=== PATIENT | male | born 1965 | race Caucasian/White ===

== ENCOUNTER 2018-02-04 10:24 | Emergency (ER) | payer OTHER ==
[~2018-02-04] VITALS: Ht 182.9 cm; Wt 94.3 kg
[2018-02-04 10:40] VITALS: BP 155/91
== END 2018-02-04 13:31 | disposition home or self-care (01) ==
LOC: ER 10:24
DX: S30.1XXA Contusion of abdominal wall, initial encounter (principal); I10 Essential (primary) hypertension; Z88.0 Allergy status to penicillin; X58.XXXA Exposure to other specified factors, initial encounter; Y93.89 Activity, other specified; Y92.89 Other specified places as the place of occurrence of the external cause; Y99.8 Other external cause status
CPT/HCPCS: 76870

== ENCOUNTER → 2019-08-18 | Emergency (ER) | payer OTHER ==
[~2019-08-18] VITALS: Ht 182.9 cm; Wt 93.4 kg
[~2019-08-18] MED LIST: LISINOPRIL 20 MG TAB PO ONE; PANTOPRAZOLE 40 MG TAB PO ONE
[2019-08-18 11:26] LABS: Basophils # (auto) 0 10 ^3/uL (0-0.2); Basophils % (auto) 0.8 % (0.0-2.0); Eosinophils # (auto) 0.1 10 ^3/uL (0-0.8); Eosinophils % (auto) 1.3 % (0.0-7.0); Hematocrit 44.7 % (41.0-53.0); Hemoglobin 15.2 g/dL (13.5-17.5); Lymphocytes # (auto) 1.3 10 ^3/uL (0.4-5.4); Lymphocytes % (auto) 21.9 % (10.0-50.0); Mean Corpuscular Hemoglobin 30.9 pg (28.0-32.0); Mean Corpuscular Volume 90.8 fL (80.0-100.0); Monocytes # (auto) 0.5 10 ^3/uL (0-1.3); Monocytes % (auto) 8.4 % (0.0-12.0); Neutrophils # (auto) 3.9 10 ^3/uL (1.6-8.6); Neutrophils % (auto) 67.6 % (37.0-80.0); Platelet Count (auto) 196 10^3/uL (140-450); Red Blood Cells 4.92 10^6/uL (4.5-5.90); Red Cell Distribution Width 13.7 % (11.8-14.3); White Blood Cell 5.7 10^3/uL (4.4-10.8)
[2019-08-18 11:46] LABS: Albumin 3.7 g/dL (3.4-5.0); Anion Gap 4 (5-15); Calcium 8.2 mg/dL (8.5-10.1); Carbon Dioxide 28 mmol/L (21-32); Chloride 111 mmol/L (98-107); Glucose 102 mg/dL (74-106); Magnesium 2.4 mg/dL (1.6-2.6); Potassium 3.6 mmol/L (3.5-5.1); Sodium 143 mmol/L (136-145)
[2019-08-18 11:50] LABS: Alanine Aminotransferase 31 U/L (16-61); Aspartate Aminotransferase 11 U/L (15-37); Bilirubin, Total 1.2 mg/dL (0.2-1.0); Blood Urea Nitrogen 25 mg/dL (7-18); GFR African American 100 mL/min; GFR Non-African American 82 mL/min; Total Protein 6.5 g/dL (6.4-8.2)
[2019-08-18 11:58] LABS: Alkaline Phosphatase 49 U/L (45-117)
[2019-08-18 13:06] LABS: INR 0.97 (0.9-1.15); Partial Thromboplastin Time 26.6 sec (23.64-32.05)
[2019-08-18 13:51] LABS: Urine Bacteria NONE SEEN /hpf (None Seen); Urine Blood Negative /uL (Negative); Urine Mucus FEW (None Seen); Urine Specific Gravity 1.027 (1.001-1.035); Urine WBC 1 /hpf (0 - 3)
[2019-08-18 16:58] VITALS: BP 159/87
== END | disposition short-term general hospital (02) ==
LOC: EDUNIT# 10:25 → ER 10:36 → EDBD 10:36
DX: R07.89 Other chest pain (principal); R00.1 Bradycardia, unspecified; I20.0 Unstable angina; K29.70 Gastritis, unspecified, without bleeding; I10 Essential (primary) hypertension; Z88.0 Allergy status to penicillin
CPT/HCPCS: 36415; 71045; 80053; 81001; 83735; 83880; 84443; 84484; 85025; 85379; 85610; 85730; 93005; 99291

== ENCOUNTER 2021-03-16 10:31 | Emergency (ER) | payer OTHER ==
[~2021-03-16] VITALS: Ht 182.9 cm; Wt 95.3 kg
[2021-03-16] MEDS ORDERED: cloNIDine HCL 0.1 MG TAB PO ONE (11:00)
[2021-03-16] MEDS ORDERED: METH4PAK PO (11:29)
[2021-03-16] MEDS ORDERED: AZIT1POW PO (11:29)
[2021-03-16] MEDS ORDERED: ONDA-144 PO (11:29)
[2021-03-16] MEDS ORDERED: ZINC220C8 PO (11:29)
[2021-03-16 12:47] VITALS: BP 208/121
== END 2021-03-16 13:11 | disposition home or self-care (01) ==
LOC: ER 10:31
DX: U07.1 COVID-19 (principal); I10 Essential (primary) hypertension; Z88.0 Allergy status to penicillin
CPT/HCPCS: 71046

== ENCOUNTER 2022-10-07 09:40 | Inpatient (IN) | payer OTHER ==
[~2022-10-07] VITALS: Ht 182.9 cm; Wt 98.7 kg
[~2022-10-07 09:40] MED LIST changes: +AZIT1POW PO; -LISINOPRIL 20 MG TAB PO ONE; +METH4PAK PO; +ONDA-144 PO; -PANTOPRAZOLE 40 MG TAB PO ONE; +ZINC220C8 PO
[2022-10-07] MEDS ORDERED: SODIUM CHLORIDE 0.9% 1,000 ML IV ONE (09:45)
[2022-10-07 10:13] LABS: Basophils # (auto) 0.1 10 ^3/uL (0-0.2); Basophils % (auto) 0.8 % (0.0-2.0); Eosinophils # (auto) 0.2 10 ^3/uL (0-0.8); Eosinophils % (auto) 3.2 % (0.0-7.0); Hematocrit 41.4 % (41.0-53.0); Hemoglobin 14.8 g/dL (13.5-17.5); Lymphocytes # (auto) 1.8 10 ^3/uL (0.4-5.4); Lymphocytes % (auto) 24.8 % (10.0-50.0); Mean Corpuscular Hemoglobin 30.6 pg (28.0-32.0); Mean Corpuscular Hgb Conc. 35.7 g/dL (32.0-36.0); Mean Corpuscular Volume 85.7 fL (80.0-100.0); Monocytes # (auto) 0.8 10 ^3/uL (0-1.3); Neutrophils # (auto) 4.4 10 ^3/uL (1.6-8.6); Neutrophils % (auto) 60.2 % (37.0-80.0); Red Blood Cells 4.83 10^6/uL (4.5-5.90); Red Cell Distribution Width 14.1 % (11.8-14.3); White Blood Cell 7.3 10^3/uL (4.4-10.8)
[2022-10-07 10:16] LABS: INR 1.02 (0.9-1.15); Partial Thromboplastin Time 28.2 SEC (24.5-34.5); Prothrombin Time 10.7 sec (9.3-11.8)
[2022-10-07 10:34] LABS: Magnesium 2.8 mg/dL (1.6-2.6)
[2022-10-07 10:39] LABS: BUN/Creatinine Ratio 25.7 (10.0-20.0); Bilirubin, Total 1.3 mg/dL (0.2-1.0); Total Protein 6.7 g/dL (6.4-8.2)
[2022-10-07 10:48] LABS: Potassium 2.9 mmol/L (3.5-5.1)
[2022-10-07] MEDS ORDERED: POTASSIUM EFFERVESENT TAB 25 MEQ PO ONE (11:00)
[2022-10-07 11:04] LABS: Urine Bacteria NONE SEEN /hpf (None Seen); Urine Blood TRACE /uL (Negative); Urine Clarity Clear (Clear); Urine Color Yellow (Yellow); Urine Protein, UAD Negative (Negative); Urine Specific Gravity 1.021 (1.001-1.035); Urine Urobilinogen Normal (Negative); Urine WBC <1 /hpf (0 - 3); Urine pH 5.5 (5.0-8.0)
[2022-10-07] MEDS ORDERED: NITROGLYCERIN 0.4 MG SL TAB SL ONE (12:45)
[2022-10-07] MEDS ORDERED: ASPirin 325 MG TAB PO ONE (12:45)
[2022-10-07 14:00] VITALS: PULSE 60; RESP 11; O2SAT 97
[2022-10-07] MEDS ORDERED: ONDANSETRON HCL 4 MG/2 ML VIAL IV PRN (14:00)
[2022-10-07] MEDS ORDERED: MORPHINE SULFATE INJ 2 MG/ml SYRG IV PRN (14:00)
[2022-10-07] MEDS ORDERED: NITROGLYCERIN 0.4 MG SL TAB SL PRN (14:00)
[2022-10-07] MEDS ORDERED: HYDROmorphone HCL 2 MG/ML VL/or syr IV PRN (14:00)
[2022-10-07] MEDS ORDERED: HYDROcodone-ACET 5/325MG TAB PO PRN (14:00)
[2022-10-07] MEDS ORDERED: DOCUSATE SOD 100 MG CAP PO PRN (14:00)
[2022-10-07] MEDS: SODIUM CHLOR 0.9% PF (SALINE LOCK) 10ML VIAL/SYR IV SCH ×2 (14:30→22:00)
[2022-10-07 16:10] LABS: BUN/Creatinine Ratio 25.8 (10.0-20.0); Calcium 9.1 mg/dL (8.5-10.1); Potassium 3.3 mmol/L (3.5-5.1)
[2022-10-07 19:35] VITALS: PULSE 62; RESP 13; O2SAT 95
[2022-10-07 23:15] VITALS: BP 144/90; PULSE 60; RESP 17; TEMP 98; O2SAT 97
[2022-10-07] MEDS ORDERED: IBUP-1455 PO (23:42)
[2022-10-07] MEDS ORDERED: CYCL-614 PO (23:42)
[2022-10-07] MEDS ORDERED: LISI20TA56 PO (23:42)
[2022-10-07] MEDS ORDERED: ASPI325T4 PO (23:44)
[2022-10-08] VITALS (7 sets, daily range): BP systolic 109–131; BP diastolic 68–79; PULSE 58–79; RESP 16–19; TEMP 98–99.3; O2SAT 89–98
[2022-10-08] MEDS: SODIUM CHLOR 0.9% PF (SALINE LOCK) 10ML VIAL/SYR IV SCH ×3 (06:46→21:10)
[2022-10-08] MEDS: ENOXAPARIN SOD 40 MG/0.4 ML SYRINGE SC SCH (10:21)
[2022-10-08 11:16] LABS: Magnesium 2.6 mg/dL (1.6-2.6)
[2022-10-08] MEDS: ACETAMINOPHEN 325 MG TAB PO PRN (11:43)
[2022-10-08] MEDS ORDERED: POTASSIUM CHL 20 Meq TABLET PO ONE (13:00)
[2022-10-08] MEDS ORDERED: TAMSULOSIN HYDROCHLORIDE 0.4 MG CAP PO ONE (13:00)
[2022-10-08] MEDS ORDERED: ASPirin 81 mg TAB PO ONE (14:15)
[2022-10-08] MEDS: ATORVASTATIN 20 MG TAB PO SCH (21:09)
[2022-10-09] VITALS (8 sets, daily range): BP systolic 118–140; BP diastolic 73–90; PULSE 53–74; RESP 16–19; TEMP 97.9–98.7; O2SAT 94–97
[2022-10-09] MEDS: SODIUM CHLOR 0.9% PF (SALINE LOCK) 10ML VIAL/SYR IV SCH ×3 (05:28→21:09)
[2022-10-09 08:04] LABS: BUN/Creatinine Ratio 24.2 (10.0-20.0); Calcium 8.7 mg/dL (8.5-10.1); Magnesium 2.7 mg/dL (1.6-2.6); Potassium 3.6 mmol/L (3.5-5.1)
[2022-10-09] MEDS: ASPirin 81 mg TAB PO SCH (09:50)
[2022-10-09] MEDS: LISINOPRIL 20 MG TAB PO SCH (09:50)
[2022-10-09] MEDS: ENOXAPARIN SOD 40 MG/0.4 ML SYRINGE SC SCH ×2 (09:52→09:54)
[2022-10-09] MEDS: ACETAMINOPHEN 325 MG TAB PO PRN ×2 (12:02→20:48)
[2022-10-09] MEDS ORDERED: TAMSULOSIN HYDROCHLORIDE 0.4 MG CAP PO SCH (18:00)
[2022-10-09] MEDS: ATORVASTATIN 20 MG TAB PO SCH (21:09)
[2022-10-10 05:00] VITALS: BP 115/73; PULSE 65; RESP 20; TEMP 98.4; O2SAT 98
[2022-10-10] MEDS: SODIUM CHLOR 0.9% PF (SALINE LOCK) 10ML VIAL/SYR IV SCH ×2 (05:10→14:00)
[2022-10-10 07:45] VITALS: O2SAT 96
[2022-10-10] MEDS ORDERED: REGADENOSON 0.4 MG/5 ML SYRG IV ONE ×2 (07:45→08:43)
[2022-10-10 09:09] VITALS: BP 138/85; PULSE 62; RESP 18; TEMP 98.2; O2SAT 98
[2022-10-10] MEDS: ENOXAPARIN SOD 40 MG/0.4 ML SYRINGE SC SCH (09:36)
[2022-10-10] MEDS: LISINOPRIL 20 MG TAB PO SCH ×2 (09:37→09:54)
[2022-10-10] MEDS: ASPirin 81 mg TAB PO SCH ×2 (09:37→09:55)
[2022-10-10] MEDS: ACETAMINOPHEN 325 MG TAB PO PRN (09:54)
[2022-10-10 12:57] VITALS: BP 119/84; PULSE 78; RESP 16; TEMP 98.7; O2SAT 95
== END 2022-10-10 15:45 | disposition home or self-care (01) | DRG 311 ==
LOC: ER 09:40 → TELE 13:50 → TELE-WESTW 20:59
PROVIDERS: ADMIT Internal Medicine; ATTEND Internal Medicine
DX: I20.8 Other forms of angina pectoris (principal); N17.9 Acute kidney failure, unspecified; E87.6 Hypokalemia; N40.0 Benign prostatic hyperplasia without lower urinary tract symptoms; R73.03 Prediabetes; I10 Essential (primary) hypertension; E78.5 Hyperlipidemia, unspecified; E66.9 Obesity, unspecified; Z88.0 Allergy status to penicillin; Z72.0 Tobacco use; Z80.51 Family history of malignant neoplasm of kidney; Z82.49 Family history of ischemic heart disease and other diseases of the circulatory system; Z83.3 Family history of diabetes mellitus; Z68.29 Body mass index [BMI] 29.0-29.9, adult
CPT/HCPCS: 36415; 71045; 74176; 78452; 80048; 80053; 80061; 81001; 83036; 83735; 83880; 84443; 84484; 85025; 85610; 85730; 93005; 93017; 93306; 93886; G0378

== ENCOUNTER 2024-11-06 07:59 | Inpatient (IN) | payer OTHER ==
[2024-11-06] VITALS (11 sets, daily range): BP systolic 114–162; BP diastolic 56–110; PULSE 43–72; RESP 12–20; TEMP 97.6–98.1; O2SAT 91–98
[~2024-11-06] VITALS: Ht 182.9 cm; Wt 84.0 kg
[~2024-11-06 07:59] MED LIST changes: -AZIT1POW PO; +GABA-1308 PO; +LISI-275 PO; +METF-372 PO; -METH4PAK PO; -ONDA-144 PO; +TAMS-35 PO; -ZINC220C8 PO
[2024-11-06] MEDS: IODIXANOL 320MG/ML 100ML BTL IV ONE ×3 (13:51→15:19)
[2024-11-06] MEDS: fentaNYL CITRATE 100 MCG/2 ML VL ONE ×2 (14:17→14:56)
[2024-11-06] MEDS: SODIUM CHL 0.9% 50 ML ONE (14:17)
[2024-11-06] MEDS: HEPARIN SODIUM (PORCINE) 5000 UNITS/ML 1ML VIAL ONE (14:17)
[2024-11-06] MEDS: VERAPAMIL 2.5MG/ML INJ 2ML VIAL IV ONE (14:17)
[2024-11-06] MEDS: ANGIOMAX 250 MG VIAL IV ONE (14:17)
[2024-11-06] MEDS: MIDAZOLAM HCL 2MG/2ML 2ml VIAL (1mg/ml) ONE ×2 (14:17→14:56)
[2024-11-06] MEDS: LIDOCAINE 2%HCL (LOCAL ANESTH.) INJ 20ML MDV ONE (14:18)
[2024-11-06] MEDS: ATROPINE SULF 1 MG/10ml SYR ONE (14:29)
[2024-11-06] MEDS: CLOPIDOGREL BISULFATE 75 MG TAB ONE (15:48)
--- NOTE | 2024-11-06 17:49 | DVHOP2 ---
Operative Report - 2 Report Details Date: 11/06/24 Preop Diagnosis: CAD Postop Diagnosis: Coronary artery disease. Status post PTCA and stenting of the LAD and diagonal artery. Surgeon: Mag Posey MD Anesthesiologist: Conscious sedation Anesthesia: Mac, Local Consent: The patient was informed of the risks and benefits of the procedure. These include but are not limited to complications of anesthesia, postoperative infection, incomplete relief of symptoms, recurrence of symptoms, damage to blood vessels, nerves and tendons, deep venous thrombosis, pulmonary embolism and possible need for repeat surgery in the future. Complications: No complications Findings: Stenosis of the LAD and diagonal arteries Indications for Surgery: Abnormal stress test. Chest pain. Name of Procedure Performed Left heart catheterization bilateral cine coronary angiography. Left ventricul ography. PTCA and stenting of the LAD and diagonal. Intravascular ultrasound of LAD. Procedure Details Procedure Details: Prior local anesthesia with 2% lidocaine to the right wrist and full informed consent obtained the patient was prepped and draped in usual fashion followed by placement of a six Thai sheath in the ulnar artery through which a six Thai catheters were used to cannulate both right and left coronary ostia and ventriculography. A three five EBU guide was then used to perform angioplasty on the LAD and diagonal. A Odimax intravascular ultrasound device was used to evaluate the left anterior descending coronary artery. Hemodynamics: Aortic blood pressure was 130/70. End-diastolic pressure was 10. There was no gradient across the aortic valve on pullback Coronary anatomy: The RCA is a large vessel in his no stenosis in his proximal mid or distal segments. The PDA and posterolateral branches are normal Main is large and normal. Left anterior descending is a large vessel it has no ostial disease. Proximally at the level of the 1st diagonal there was a 90% stenosis involving the diagonal as well. The mid and distal segments of the LAD are normal. The the diagonals are otherwise normal as well as well as the septals. Circumflex has two obtuse marginal branches free of significant disease Ventriculography in the DUKES projection shows an EF of 55%. Mild anterior hypokinesis. Angioplasty was performed. The EBU catheter was then placed and a we double wire of the LAD diagonal with a Specter wires. Pre-dilated with a 3 mm by 10 mm AngioSculpt. We performed atherotomy of the LAD and diagonal arteries. We then placed a 2.75 mm by 12 mm stent subsequent to performing intravascular ultrasound of the LAD and diagonal. The initial stent was placed into the left anterior descending and we then placed a 2.75 mm x 12 mm stent into the diagonal as well. After adequate positioning we dilated the diagonal stent. This diagonal stent was across the LAD and diagonal bifurcation. We subsequently removed the balloon. Upon removing the balloon we crushed the left anterior descending coronary artery part of the stent by doing a DK crush technique. We then removed the diagonal wire and placed through the true lumen between a strut and dilated with a noncompliant 3-0 by 15 mm balloon. A kissing balloon technique was used with a dual 3.0 x 15 mm noncompliant balloon. There appeared to be slight residual edge dissection for which we placed a 2nd evaluation with an ultrasound device confirming the small dissection. We then placed a 4-0 by 8 mm stent into the segment. Patient tolerated the procedure well there were no complications. Impression: successful PTCA and stenting of the LAD and diagonal. Normal ventr icular end-diastolic pressure was with normal ejection fraction. Recommendations: Continue medical therapy and risk factor modification to continue. Condition Good Disposition Still a Patient Date of Service: Nov 06, 2024 Billing Provider: MAG POSEY Sr., MD Cardiology Common Codes: 85519-GRDJINZ INP/OBS CARE (High) Cardiology Procedure Codes: 58735 -PTCA W/STENT PLACEMENT, 21846-ZJNY ADD CORONARY BRANCH, 53619-HIBQ HEART CATH W/INTRA INJ (Intravascular ultrasound. Lad.) MAG POSEY Sr., MD Nov 06, 2024 17:49
[2024-11-06] MEDS: ACETAMINOPHEN 325 MG TAB PO ONE (22:28)
[2024-11-07] VITALS (7 sets, daily range): BP systolic 107–120; BP diastolic 70–84; PULSE 58–102; RESP 18; TEMP 97.7–99.8; O2SAT 95–98
[2024-11-07] MEDS: TAMSULOSIN HYDROCHLORIDE 0.4 MG CAP PO SCH (07:12)
[2024-11-07] MEDS: CLOPIDOGREL BISULFATE 75 MG TAB PO SCH (09:48)
[2024-11-07] MEDS: GABAPENTIN 100 MG CAP PO SCH (09:49)
[2024-11-07] MEDS: LISINOPRIL 5 MG TAB PO SCH (09:50)
--- NOTE | 2024-11-07 14:40 | DVHDS2 ---
Discharge Summary Date of Admission Nov 06, 2024 at 16:37 Date of Discharge: Nov 07, 2024 Brief Hx & Hospital Course: see dictated note Condition at Discharge: Good Final Diagnosis/Problems List Coronary artery disease. Status post PTCA and stenting of the LAD and diagonal artery. Discharge Disposition: Still a Patient Discharge Instruct/Medications Scheduled Gabapentin (Gabapentin), 200 MG PO DAILY, (Reported) Lisinopril (Lisinopril), 5 MG PO DAILY, (Reported) Metformin Hydrochloride (Metformin Hcl), 1 TAB PO BID, (Reported) Tamsulosin Hcl (Flomax), 1 CAP PO DAILY, (Reported) Discharge Statement: "Patient was advised to return to the ER or call 911 if any headaches, dizziness, shortness of breath, chest pain, abdominal pain, bleeding, fevers, or worsening of medical condition. Patient was counseled about treatment plan, medications, possible side effects, patientverbalized understanding. All questions were answered to the best of my ability. This discharge took greater then 30 minutes in planning, reviewing documentation, counseling the patient, and discussing with other team members." ASSESSMENT ASSESSMENT Assessment Coronary artery disease. Status post PTCA and stenting of the LAD anddiagonal artery. Date of Service: Nov 07, 2024 Billing Provider: MARCIA ANDREWS MD Common Visit Codes: 93030-IUY/OBS DISCH DAY >30min MARCIA ANDREWS MD Nov 07, 2024 14:40
--- NOTE | 2024-11-07 14:40 | DVHHP2 ---
Review of Systems Allergies: Coded Allergies: Penicillins (Verified Allergy, Severe, 02/04/18) Medications Current Medications Medications Dose Ordered Sig/Guido Route Start Time Stop Time Status Last Admin Dose Admin Aspirin 81 mg DAILY PO 11/07/24 10:00 Clopidogrel Bisulfate 75 mg DAILY PO 11/07/24 10:00 11/07/24 09:48 75 MG Gabapentin 200 mg DAILY PO 11/07/24 10:00 11/07/24 09:49 200 MG Lisinopril 5 mg DAILY PO 11/07/24 10:00 11/07/24 09:50 5 MG Tamsulosin HCl 0.4 mg QPM PO 11/06/24 18:00 Exam Vital Signs Vital Signs Date Time Temp Pulse Resp B/P (MAP) Pulse Ox O2 Delivery O2 Flow Rate FiO2 11/07/24 13:37 98.6 62 18 113/74 (87) 98 98.6 11/07/24 08:00 Room Air* 0 21 SEPSIS Sepsis Screen Vital Signs Date Time Temp Pulse Resp B/P (MAP) Pulse Ox O2 Delivery O2 Flow Rate FiO2 11/07/24 13:37 98.6 62 18 113/74 (87) 98 98.6 11/07/24 09:50 116/84 11/07/24 09:00 98.8 58 18 116/84 (95) 95 98.8 11/07/24 08:00 68 18 Room Air* 0 21 11/07/24 08:00 93 Medications Medications Dose Ordered Sig/Guido Route Start Time Stop Time Status Last Admin Dose Admin Clopidogrel Bisulfate 75 mg DAILY PO 11/07/24 10:00 11/07/24 09:48 75 MG Gabapentin 200 mg DAILY PO 11/07/24 10:00 11/07/24 09:49 200 MG Lisinopril 5 mg DAILY PO 11/07/24 10:00 11/07/24 09:50 5 MG Assessment/Plan Assessment/Plan see dictated note Plan discussed with: Patient, Spouse Date of Service: Nov 07, 2024 Billing Provider: MARCIA ANDREWS MD Common Visit Codes: [id number] INP/OBS CARE (HIGH) MARCIA ANDREWS MD Nov 07, 2024 14:40
[2024-11-07] MEDS ORDERED: CLOP75TA28 PO (14:43)
[2024-11-07] MEDS ORDERED: ATOR40TA52 PO (14:43)
[2024-11-07] MEDS ORDERED: ASPI-498 PO (14:43)
--- NOTE | 2024-11-07 15:00 | DVHHP ---
ADMIT DATE: 11/06/2024 HISTORY OF PRESENT ILLNESS: The patient is a 59-year-old gentleman, who was admitted with complaints of chest pains and bradycardic episodes. The patient denies any chest pain at the current time. No shortness of breath. No nausea or vomiting. REVIEW OF SYSTEMS: Review of rest of the other systems is currently negative. PAST MEDICAL HISTORY: Significant for hypertension and diabetes mellitus. ALLERGIES: PENICILLIN. SOCIAL HISTORY: Denies smoking, alcohol. He lives at home with his . FAMILY HISTORY: Negative. PHYSICAL EXAMINATION: GENERAL: The patient is awake, alert. VITAL SIGNS: Temperature of 98.8, pulse 62 per minute, blood pressure 113/74. SHEENT: Unremarkable. There is no JVD. No pedal edema. LUNGS: Equal bilaterally. No added sounds. CARDIOVASCULAR SYSTEM: S1 and S2 is regular. No murmurs. ABDOMEN: Soft. There is no organomegaly NEUROLOGIC: Nonfocal. MUSCULOSKELETAL: Normal. ASSESSMENT AND PLAN: * Diabetes mellitus for which he will be placed on sliding scale insulin. * Hypertension. * Hyperlipidemia. * Coronary artery disease with status post stent placement and stenting of the LAD and diagonal. MD TRUDI Warner/AMI TID: [id number] RECEIPT: [id number]
--- NOTE | 2024-11-07 15:18 | DVHDS ---
DATE OF DISCHARGE: 11/07/2024 The patient is a 59-year-old male who was admitted with complaints of chest pain and underwent coronary angiography. The patient has history of hypertension and diabetes and BPH. HOSPITAL COURSE: The patient underwent coronary angiography with stenting of the LAD and diagonal. The patient is currently chest pain free. He will be discharged if cleared by Cardiology to resume his home medications as well as to be on Lipitor 40 mg daily, aspirin 81 mg daily, and Plavix 75 mg daily. No beta-johnny was given because of bradycardia. He will follow up with Dr. Posey in the next one to two weeks. FINAL DIAGNOSES: * Coronary artery disease with stenting. * Diabetes mellitus. * Hypertension. * BPH. Time spent in discharge planning and review of plan with the patient and nursing was 38 minutes. MD TRUDI Warner/NICOLE TID: [id number] RECEIPT: [id number]
== END 2024-11-07 18:30 | disposition home or self-care (01) | DRG 321 ==
LOC: CATH 07:59 → OVERFLOW 16:37 → TELE-WESTW 20:12
PROVIDERS: ADMIT Internal Medicine; ATTEND Internal Medicine
PROC: 027135Z Dilation of Coronary Artery, Two Arteries with Two Drug-eluting Intraluminal Devices, Percutaneous Approach (ICD-10-PCS; principal; 2024-11-06)
PROC: 02C13ZZ Extirpation of Matter from Coronary Artery, Two Arteries, Percutaneous Approach (ICD-10-PCS; 2024-11-06)
PROC: 4A023N7 Measurement of Cardiac Sampling and Pressure, Left Heart, Percutaneous Approach (ICD-10-PCS; 2024-11-06)
PROC: B211YZZ Fluoroscopy of Multiple Coronary Arteries using Other Contrast (ICD-10-PCS; 2024-11-06)
PROC: B215YZZ Fluoroscopy of Left Heart using Other Contrast (ICD-10-PCS; 2024-11-06)
PROC: B240ZZ3 Ultrasonography of Single Coronary Artery, Intravascular (ICD-10-PCS; 2024-11-06)
DX: I25.10 Atherosclerotic heart disease of native coronary artery without angina pectoris (principal); I10 Essential (primary) hypertension; Z95.5 Presence of coronary angioplasty implant and graft; R00.1 Bradycardia, unspecified; N40.0 Benign prostatic hyperplasia without lower urinary tract symptoms; E78.5 Hyperlipidemia, unspecified; E11.9 Type 2 diabetes mellitus without complications; Z88.0 Allergy status to penicillin; Z79.82 Long term (current) use of aspirin; Z79.899 Other long term (current) drug therapy; Z79.02 Long term (current) use of antithrombotics/antiplatelets; Z79.84 Long term (current) use of oral hypoglycemic drugs
CPT/HCPCS: 92933; 92978; 93458; 99152; C1887; C1894; G0378; J2250; Q9967

== ENCOUNTER 2025-01-20 10:25 | Outpatient (CLI) | payer OTHER ==
[~2025-01-20 10:25] MED LIST changes: +ASPI-498 PO; +ATOR40TA52 PO; +CLOP75TA28 PO
[2025-01-20 12:21] LABS: Iron 126.0 ug/dL (65-175)
[2025-01-20 12:24] LABS: Total Iron Binding Capacity 256.0 ug/dL (250-425)
[2025-01-22 13:08] LABS: Albumin 3.8 g/dL (2.9-4.4); Alpha-1-Globulin 0.2 g/dL (0.0-0.4); Alpha-2-Globulin 0.7 g/dL (0.4-1.0); Gamma Globulin 0.9 g/dL (0.4-1.8)
== END 2025-01-20 17:00 | disposition home or self-care (01) ==
LOC: LAB 10:25
PROVIDERS: ATTEND Psychiatry & Neurology Neurology
DX: G61.81 Chronic inflammatory demyelinating polyneuritis (principal); G62.2 Polyneuropathy due to other toxic agents
CPT/HCPCS: 82728; 83540; 83550; 84155; 84165